=== PATIENT | male | born 1995 | race Caucasian/White ===

== ENCOUNTER 2017-07-16 19:11 | Emergency (ER) | payer OTHER ==
[~2017-07-16] VITALS: Ht 182.9 cm; Wt 90.1 kg
[2017-07-16 19:36] VITALS: TEMP 36.8; Ht 182.9 cm; Wt 90.1 kg
--- NOTE | 2017-07-16 20:10 | EMERGENCY ROOM VISIT NOTE ---
History First contact with patient: 19:42 Chief Complaint: HEAD INJURY (MINOR) Stated Complaint: CUT ON BACK OF HEAD History of Present Illness The patient is a 22 year old male who presents to the Emergency Room with complaints of a laceration to the back of his head. The patient reports that he cut his head 3 days ago on a coffee table. He states that he was wrestling around with friends and fell. There was no loss of consciousness. He states he had a headache for the first day, however this has improved. There was no loss of consciousness. There has been no vomiting, blurred vision, slurred speech or confusion. He states that he wanted to have the laceration checked to make sure there were no signs of infection. He denies any fevers or any redness or swelling that he has noticed. Review of Systems A complete 10 point review of systems was reviewed with the patient with pertinent positives and negatives as per history of present illness. All else were negative. Past Medical/Surgical History Medical Problems: (1) No significant active problems Social History Smoking Status: Never Smoker Alcohol Use: occasionally Housing Status: lives with roommate Occupation Status: [employer] student Physical Exam Vital Signs Date Time Temp Pulse Resp B/P (MAP) Pulse Ox O2 Delivery O2 Flow Rate FiO2 07/16/17 20:22 88 18 125/68 98 07/16/17 19:36 36.8 92 18 168/90 98 Room Air 07/16/17 19:36 18 Physical Exam VITALS: Vitals are noted on the nurse's note and reviewed by myself. Vital signs stable. GENERAL: This is a 22-year-old male, in no acute distress, nondiaphoretic, well- developed well-nourished. SKIN: There is a scabbed, healing laceration to the posterior aspect of the scalp. There is no surrounding erythema, warmth or drainage. HEAD: Normocephalic atraumatic. EARS: External auditory canals clear, tympanic membranes pearly eastman without erythema or effusion bilaterally. EYES: Pupils equal round and reactive to light and accommodation. Extraocular movements intact. NECK: Supple without nuchal rigidity. Cervical spine is nontender. HEART: Regular rate and rhythm without murmurs gallops or rubs. LUNGS: Clear to auscultation bilaterally without wheezes, rales or rhonchi. No dullness to percussion. No retractions or accessory muscle use. NEURO: Patient was alert and oriented to person place and time. No focal neurological deficits. Medical Decision & Procedures Medical Decision The patient was evaluated as above. He sustained a laceration which has been healing well. There are no signs of infection. Patient did have a headache initially, however symptoms have resolved and there is nothing to suggest a serious head injury. Patient was reassured. Wound care instructions were discussed. He will follow-up with his primary care provider as needed. He verbalized understanding of my assessment and treatment plan and was discharged home in good condition. Head Trauma GCS Score: 15 Medication Reconcilliation Current Medication List: was personally reviewed by me Blood Pressure Screening Patient's blood pressure: Normal blood pressure Impression Primary Impression: Closed head injury Additional Impression: Scalp laceration Departure Information Dispostion Home / Self-Care Condition GOOD Referrals No Doctor, Assigned (PCP) Patient Instructions My [facility] Additional Instructions Proper wound care is essential for adequate wound healing and infection prevention. You can shower and clean the wound with soap and water. Do not scour over the wound, pat dry with a towel. You may apply an antibiotic ointment to the wound once daily. For pain control, you can use the following [id number] medicines (if >12 yo): - Regular strength (325mg/tab) Tylenol (acetaminophen) 2 tabs every 4-6 hours as needed. Do not exceed 12 tablets in a 24 hour period. Avoid taking more than 4 grams (4000 mg) of Tylenol per day. This includes any other sources of acetaminophen you may take on a regular basis. - Regular strength (200 mg/tab) Advil (ibuprofen) 1-2 tabs every 4-6 hours as needed. Do not exceed a dose of 3200 mg per day. You may return to athletic activity. Return to the emergency department with worsening pain, vomiting, passing out, or any redness, swelling or drainage from the wound. Problem Qualifiers Primary Impression: Closed head injury Encounter type: initial encounter Qualified Codes: S09.90XA - Unspecified injury of head, initial encounter Additional Impression: Scalp laceration Encounter type: initial encounter Qualified Codes: S01.01XA - Laceration without foreign body of scalp, initial encounter
[2017-07-16 20:22] VITALS: BP 125/68; PULSE 88; O2SAT 98
== END 2017-07-16 20:23 | disposition home or self-care (01) ==
LOC: C.EDB 19:13 → C.EDD 20:23
DX: S09.90XA Unspecified injury of head, initial encounter (principal); S01.01XA Laceration without foreign body of scalp, initial encounter; W22.8XXA Striking against or struck by other objects, initial encounter; Y93.83 Activity, rough housing and horseplay